=== PATIENT | female | born 1945 | race Caucasian/White ===

== ENCOUNTER → 2016-11-12 | Outpatient (CLI) | payer MEDICARE, BC ==
--- NOTE | 2016-11-13 12:53 | MAM ---
History: Well woman exam. Date of exam: 11/12/2016 Services provided: Bilateral full field digital screening mammography. CAD, the images were reviewed with R2 computer aided detection. FINDINGS: Glandular tissue is scattered glandular pattern. Comparison with 2015 exam. No dominant mass, architectural distortion or clustered microcalcification. IMPRESSION: Benign exam Recommendation: Routine annual mammography BIRAD CATEGORY: 2 BENIGN Electronically signed by: Alem Marshall MD 11/13/2016 12:52 PM CDT Workstation: [id number]
== END ==
LOC: MAMMO 08:51
PROVIDERS: ATTEND Obstetrics & Gynecology
DX: Z12.31 Encounter for screening mammogram for malignant neoplasm of breast (principal)

== ENCOUNTER 2016-11-25 08:54 | Emergency (ER) | payer MEDICARE, BC ==
--- NOTE | 2016-11-25 09:16 | CT ---
EXAM DESCRIPTION: Head CLINICAL HISTORY: 71 years, Female, slurred speech,left arm weakness COMPARISON: December 03, 2015 TECHNIQUE: Head CT was performed without IV contrast. This exam was performed according to our departmental dose-optimization program, which includes automated exposure control, adjustment of the mA and/or kV according to patient size and/or use of iterative reconstruction technique. FINDINGS: There is no acute intracranial hemorrhage. There is no midline shift or other mass effect. The ventricles and basilar cisterns are well maintained. There are small areas of decreased attenuation in both occipital lobes, new from one year prior. The basal ganglia are unremarkable. No cerebellar lesion. Visualized paranasal sinuses and orbits are unremarkable. No calvarial lesion. IMPRESSION: Small areas of decreased attenuation in both occipital lobes concerning for nonhemorrhagic infarct, questionable acuity. Findings are new from November,. MRI is recommended. Findings and recommendations were reported by telephone to Dr. Girard by me at the time of this dictation. Electronically signed by: Angel Choudhary MD 11/25/2016 9:15 AM CDT Workstation: [id number]
[2016-11-25 09:23] VITALS: TEMP 97.5
[2016-11-25] MEDS ORDERED: ACETAMINOPHEN 500 MG TAB PO ONE (09:43)
--- NOTE | 2016-11-25 09:55 | ED.PDOC ---
History of Present Illness - General Chief Complaint: Neuro Symptoms/Deficits Stated Complaint: slurred speech,left arm weakness Time Seen by Provider: 11/25/16 09:33 Source: patient, family Exam Limitations: no limitations Additional Information: AT 08:40 THIS AM (50 MIN AGO) PT HAD SUDDEN ONSET WEAKNESS IN L ARM, L LEG, AND SLURRED SPEECH, R-SIDED LOMELI. H/O HLP BUT NO H/O HTN OR STROKE. - History of Present Illness Severity: severe Improving Factors: nothing Worsening Factors: nothing Associated Symptoms: numbness in legs/feet, paresthesia, slurred speech, trouble walking, weakness Allergies/Adverse Reactions: Allergies Naproxen [From Aleve] Adverse Reaction (Verified 12/03/15 11:47) swelling Home Medications: Ambulatory Orders Lovastatin 10 mg PO DAILY 12/03/15 Review of Systems - Review of Systems Constitutional: States: weakness. Denies: diaphoresis EENTM: Denies: ear pain, nose congestion Respiratory: States: no symptoms reported Cardiology: States: no symptoms reported Gastrointestinal/Abdominal: States: no symptoms reported Genitourinary: States: no symptoms reported Musculoskeletal: States: other - LUE AND LLE WEAKNESS Skin: States: no symptoms reported Neurological: States: headache, numbness, paresthesia, weakness Endocrine: States: no symptoms reported Hematologic/Lymphatic: States: no symptoms reported All other Systems: Reviewed and Negative Past Medical History (General) - Patient Medical History Hx Seizures: No Hx Stroke: No Hx Dementia: No Hx Asthma: No Hx of COPD: No Hx Cardiac Disorders: No Hx Congestive Heart Failure: No Hx Pacemaker: No Hx Hypertension: No Hx Thyroid Disease: No Hx Diabetes: No Hx Gastroesophageal Reflux: No Hx Renal Disease: No Hx Cancer: No Hx of HIV: No Hx Hepatitis C: No Hx MRSA: No Surgical History: no surgical history - Vaccination History Hx Tetanus, Diphtheria Vaccination: No Hx Influenza Vaccination: No Hx Pneumococcal Vaccination: No - Social History Hx Tobacco Use: No Hx Chewing Tobacco Use: No Hx Alcohol Use: No Hx Substance Use: No Hx Substance Use Treatment: No Hx Depression: No Hx Physical Abuse: No Hx Emotional Abuse: No Hx Suspected Abuse: No - Female History Patient : No Family Medical History - Family History Mother Family History: Unknown Physical Exam - Physical Exam General Appearance: Alert, Anxious Eye Exam: bilateral normal ENT Exam: hearing grossly normal, TMs normal Neck: full range of motion, supple, normal inspection Respiratory: chest non-tender, lungs clear, normal breath sounds Cardiovascular/Chest: normal peripheral pulses, regular rate, rhythm Gastrointestinal/Abdominal: normal bowel sounds, non tender Back Exam: no CVA tenderness Extremities Exam: other - LUE AND LLE MOTOR 1/5 AND INSENSATE TO SHARP TOUCH OR DULL. 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 L FACE INSENSATE (TRIGEMINAL). L FACE MOTOR WEAKNESS (FACIAL NERVE). Coordination/Gait: ABN nose to finger (L), other - ACUTELY UNABLE TO STAND Motor/Sensory: weak motor strength LUE, weak motor strength LLE DTR: 2+: Patellar, left, Patellar, right Skin Exam: normal color, warm/dry Progress - Progress Progress: 11/25/16 10:00 [place], SHE IS HAVING A STROKE AFFECTING MOTOR AND SENSORY OF LUE, LLE, L FACIAL NERVE (WEAKNESS), AND L TRIGEMINAL NERVE (INSENSATE). STAT CT I SPOKE WITH RADIOLOGIST. BL OCCIPTAL LOBE DECR ATTENUATION; RIGHT SIDE COULD BE ACUTE. NO BLOOD, NO MASS, NO MIDLINE SHIFT. I SPOKE WITH DR. ERNST (SP?), ER PHYSICIAN AT [facility], WHO ACCEPTED TRANSFER AND FURTHER CARE OF THE PT, WHICH IS GREATLY APPRECIATED. HE ASKED ME TO CALL DR. MYLES, THE NEUROLOGIST CLINICAL FACULTY ([phone]) TO DISCUSS POSSIBLE TPA. I CALLED HER AND REACHED HER VOICEMAIL AND LEFT A MESSAGE TO PLEASE CALL ME BACK ON MY PERSONAL CELL PHONE, SO WE DID NOT DELAY THE TRANSFER AND TPA WAS NOT GIVEN IN [place]. PT'S VITAL SIGNS WERE SAFE FOR TRANSFER VIA AMBULANCE. 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
[2016-11-25 10:08] VITALS: BP 153/96; O2SAT 97
== END 2016-11-25 10:07 | disposition short-term general hospital (02) ==
LOC: ER 08:54
DX: I63.9 Cerebral infarction, unspecified (principal); R47.1 Dysarthria and anarthria; R53.1 Weakness; Z88.6 Allergy status to analgesic agent

== ENCOUNTER → 2018-06-14 | Outpatient (CLI) | payer MEDICARE | LOC: RESP 11:50 | PROVIDERS: ATTEND Family Medicine | DX: R55 Syncope and collapse (principal); I48.2 Chronic atrial fibrillation ==

== ENCOUNTER → 2018-06-24 | Outpatient (CLI) | payer MEDICARE ==
--- NOTE | 2018-06-24 13:47 | CT ---
EXAM DESCRIPTION: Head CLINICAL HISTORY: HEMATOMA COMPARISON: Previous CT head November 25, 2016 and December 03, 2015 TECHNIQUE: Noncontrast head CT was performed with routine protocol. FINDINGS: Surgical changes of right craniotomy with near anatomic position of the bone flap. Low density in the right posterior frontal and right parietal lobe as well as right occipital lobe is present with enlargement of the lateral right lateral ventricle consistent with postoperative encephalomalacia or old infarctions in right middle cerebral and posterior cerebral arterial distributions. A smaller chronic infarct in the left parasagittal parietal lobe is also noted. Compared to the more recent study, these are new or increased. The earlier study from December 03, [address] findings and clinical symptoms do not correlate, MRI of the brain might be considered if the patient is an MRI candidate. Normal smith-white matter differentiation in other areas. Ventricles and sulci are prominent consistent with age-related cerebral volume loss. No high density hemorrhage, focal edema or shift of the midline. No sulcal effacement. Normal orbital contents. Basilar cisterns appear clear. Intact calvarium with no fracture or lytic lesion. Normal aeration of tympanic cavities and mastoid air cells. Paranasal sinuses are clear. Previous study showed ethmoid and sphenoid sinusitis. Skull base appears intact. Symmetrical internal auditory canals. IMPRESSION: Previous right craniotomy with extensive, chronic appearing right more than left cerebral hemispheric encephalomalacic abnormalities as described. No acute intracranial pathologic process. This exam was performed according to our departmental dose-optimization program, which includes automated exposure control, adjustment of the mA and/or kV according to patient size and/or use of iterative reconstruction technique. Total DLP equals 752.48 mGycm. Electronically signed by: Nic Sifuentes MD 06/24/2018 1:45 PM [facility]
== END ==
LOC: CT 12:59
DX: T14.8XXA Other injury of unspecified body region, initial encounter (principal); Z98.890 Other specified postprocedural states

== ENCOUNTER → 2018-10-27 | Outpatient (CLI) | payer MEDICARE ==
--- NOTE | 2018-10-28 13:20 | US ---
US THYROID CLINICAL STATEMENT: NONTOXIC THYROID NODULE. COMPARISON: None TECHNIQUE: Transcutaneous scanning, grayscale and Doppler modes. FINDINGS: Size right thyroid lobe: 5.2 x 2.6 x 2.4 cm Size left thyroid lobe: 4.5 x 1.6 x 1.2 cm Size isthmus: 0.26 cm Estimated total number of nodules greater than or equal to 1 cm: 4 The entire gland is heterogeneous. Nodule 1: Size: 3.3 x 2.1 x 1.7 cm Location: Right Mid Composition: solid or almost completely solid: 2 points Echogenicity: hyperechoic: 1 point Shape: wider than tall: 0 points Margins: smooth: 0 points Echogenic foci: none: 0 points ACR Total Points: 3; ACR TI-RADS risk category: TR3 - mildly suspicious nodule. Nodule 2: Size: 1.5 x 0.8 x 0.8 cm Location: Left Mid Composition: solid or almost completely solid: 2 points Echogenicity: hypoechoic: 2 points Shape: wider than tall: 0 points Margins: ill-defined: 0 points Echogenic foci: none: 0 points ACR Total Points: 4; ACR TI-RADS risk category: TR4 - moderately suspicious nodule. Nodule 3: Size: 1.2 x 1.0 x 0.8 cm Location: Right Mid Composition: solid or almost completely solid: 2 points Echogenicity: hypoechoic: 2 points Shape: wider than tall: 0 points Margins: ill-defined: 0 points Echogenic foci: none: 0 points ACR Total Points: 4; ACR TI-RADS risk category: TR4 - moderately suspicious nodule. Nodule 4: Size: 1.2 x 0.9 x 0.7 cm Location: Left Mid Composition: solid or almost completely solid: 2 points Echogenicity: hypoechoic: 2 points Shape: wider than tall: 0 points Margins: smooth: 0 points Echogenic foci: none: 0 points ACR Total Points: 4; ACR TI-RADS risk category: TR4 - moderately suspicious nodule. The soft tissue around the thyroid gland shows no dominant solid mass or distinct cyst. No large calcifications or parenchymal edema. IMPRESSION: 1. Nodule 1: ACR TI-RADS 2017 Category TR3. Recommend: Ultrasound-guided fine needle aspiration. Recommendations based upon [facility] Best Practice recommendations and ACR TI-RADS 2017 guidelines. Please see below*. 2. Nodule 2: ACR TI-RADS 2017 Category TR4. Recommend: Follow-up ultrasound in 1 year. 3. Nodule 3: ACR TI-RADS 2017 Category TR4. Recommend: Follow-up ultrasound in 1 year. 4. Nodule 4: ACR TI-RADS 2017 Category TR4. Recommend: Follow-up ultrasound in 1 year. Soft tissue around the thyroid gland is unremarkable. *ACR TI-RADS 2017 Recommendations: TR1: No FNA or follow up TR2: No FNA or follow up TR3: FNA if >/= 2.5 cm, follow up if 1.5 - 2.4 cm in 1, 3, and 5 years TR4: FNA if >/= 1.5 cm, follow up if 1.0 - 1.4 cm in 1, 2, 3, and 5 years TR5: FNA if >/= 1.0 cm, follow up if 0.5 - 0.9 cm every year for 5 years ACR TI-RADS recommends that no more than two nodules with the highest ACR TI-RADS total point should be biopsied and no more than four nodules should be followed. These recommendations do not apply to patients with increased risk for thyroid cancer or patients with symptomatic thyroid disease. Electronically signed by: Godfrey Holcomb MD 10/28/2018 1:18 PM CDT
== END ==
LOC: US 10:30
PROVIDERS: ATTEND Family Medicine
DX: E04.1 Nontoxic single thyroid nodule (principal)

== ENCOUNTER → 2018-11-09 | Outpatient (CLI) | payer MEDICARE ==
--- NOTE | 2018-11-09 16:18 | US ---
Thyroid Biopsy, Image-Guided: Ultrasound CLINICAL INFORMATION: Abnormal right thyroid nodule. Previous right CVA. TECHNIQUE: Procedure was explained to the patient with risks and benefits. The patient gave verbal and written consent. Sterile preparation draping. 1% xylocaine dermal anesthetic 9-1 mixture with sodium bicarbonate. Sterile ultrasound guidance. A total of 6 passes right thyroid nodule; 4 needle samplings with a separate 1.5 inch, 25-gauge needle per sample, and 2 aspirations, with a separate 1.5 inch, 25-gauge needle/10-cc syringe set, per aspiration. Each sample was placed on a separate slide and fixed in 95% alcohol container. Saccomanno fluid drawn into aspirate needle and rinse injected into Saccomanno container. Specimens to be sent for pathologic examination at remote facility. . Patient tolerated procedure well. Biopsy #: 1 Nodule reference number based on prior diagnostic ultrasound:1 Maximum size: 3.3 cm Location: right; mid ACR TI-RADS risk category: TR3 (3 points) Reason for biopsy: meets ACR TI-RADS criteria Complications: None. IMPRESSION: Successful ultrasound guided fine needle aspiration of right thyroid nodule. ACR TI-RADS Risk Category TR 3 Electronically signed by: Godfrey Holcomb MD 11/09/2018 4:15 PM CDT
== END ==
LOC: US 10:58
PROVIDERS: ATTEND Family Medicine
DX: E04.1 Nontoxic single thyroid nodule (principal)

== ENCOUNTER → 2019-02-21 | Outpatient (CLI) | payer MEDICARE | LOC: GMAJ 13:53 | PROVIDERS: ATTEND Family Medicine | DX: E04.1 Nontoxic single thyroid nodule (principal) ==

== ENCOUNTER → 2019-04-18 | Outpatient (CLI) | payer MEDICARE | LOC: GMAJ 14:25 | PROVIDERS: ATTEND Family Medicine | DX: E03.8 Other specified hypothyroidism (principal); E78.2 Mixed hyperlipidemia ==